=== PATIENT | female | born 1960 | race Asian ===

== ENCOUNTER 2018-06-26 10:27 | Inpatient (IN) | payer OTHER ==
[~2018-06-26] VITALS: Ht 149.9 cm; Wt 59.9 kg
[2018-06-26] MEDS ORDERED: SODIUM CHLORIDE 0.9% 1,000 ML IV ONE ×5 (11:04→13:37)
[2018-06-26 11:12] LABS: Hematocrit 53.8 % (36.0-46.0); Hemoglobin 18.3 g/dL (12.2-16.2); Mean Corpuscular Hemoglobin 29.8 pg (28.0-32.0); Mean Corpuscular Hgb Conc. 33.9 g/dL (32.0-36.0); Mean Corpuscular Volume 87.8 fL (80.0-100.0); Platelet Count (auto) 400 10^3/uL (140-450); Red Blood Cells 6.13 10^6/uL (4.0-5.20)
[2018-06-26] MEDS ORDERED: ONDANSETRON HCL 4 MG/2 ML VIAL IV ONE (11:15)
[2018-06-26] MEDS ORDERED: MORPHINE SULFATE 4 MG/ML SYR/VIAL IV ONE (11:15)
[2018-06-26 11:18] LABS: White Blood Cell 31.2 10^3/uL (4.4-10.8)
[2018-06-26 11:19] LABS: Albumin 4.9 g/dL (3.4-5.0); Anion Gap 12 (5-15); Basophils % (manual) 0 (0.0-2.0); Blast Cells 0; Blood Urea Nitrogen 31 mg/dL (7-18); Calcium 10.5 mg/dL (8.5-10.1); Carbon Dioxide 23 mmol/L (21-32); Chloride 101 mmol/L (98-107); Eosinophils % (manual) 0 (0-7); Glucose 317 mg/dL (74-106); Metamyelocytes % 0; Myelocytes % 0; Potassium 3.7 mmol/L (3.5-5.1); Promyelocytes % 0; Reactive Lymphocytes 0; Sodium 136 mmol/L (136-145)
[2018-06-26 11:26] LABS: Alanine Aminotransferase 38 U/L (13-56); Alkaline Phosphatase 100 U/L (45-117); Aspartate Aminotransferase 24 U/L (15-37); BUN/Creatinine Ratio 20.3; Bilirubin, Total 0.6 mg/dL (0.2-1.0); GFR African American 45 mL/min; GFR Non-African American 37 mL/min; Total Protein 9.3 g/dL (6.4-8.2)
[2018-06-26] MEDS ORDERED: VANCOMYCIN 1GM/250ML 250 ML IV ONE (11:30)
[2018-06-26] MEDS ORDERED: InsuLIN REG 1unit/0.01ml Soln (100units/ml) IV ONE (11:30)
[2018-06-26 12:01] LABS: Band Neutrophils % (manual) 2; Lymphocytes % (manual) 6 (10.0-50.0); Monocytes % (manual) 6 (0-12)
[2018-06-26 12:35] LABS: Lactic Acid w/Reflex 3.1 mmol/L (0.4-2.0)
[2018-06-26] MEDS ORDERED: metroNIDAZOLE 500MG/100ML 100 ML IV ONE (13:45)
[2018-06-26] MEDS ORDERED: GASTROGRAFIN 120 ML SOL ONE (14:47)
[2018-06-26] MEDS ORDERED: DEXTROSE (50%) 50ML SYRG IV PRN (15:45)
[2018-06-26] MEDS ORDERED: NITROGLYCERIN 0.4 MG SL TAB SL PRN (15:45)
[2018-06-26] MEDS ORDERED: LABETALOL HCL 5 MG/ML ML 20ML VIAL IV PRN (15:45)
[2018-06-26] MEDS ORDERED: MORPHINE SULF INJ 2 MG/ML SYRINGE 1ML IV PRN ×2 (15:45)
[2018-06-26] MEDS ORDERED: hydrALAZINE HCL 20 MG/ML VL IV PRN (15:45)
[2018-06-26] MEDS: InsuLIN REG 1unit/0.01ml Soln (100units/ml) SC SCH ×2 (18:42→23:16)
[2018-06-26] MEDS: ACCU-CHEK COMFORT CURVE STRIP VI SCH ×2 (18:42→23:19)
[2018-06-26] MEDS: FAMOTIDINE (10MG/ML) 2ML VL IV SCH (18:44)
[2018-06-26 19:32] LABS: Amylase 63 U/L (25-115); Lipase 186 U/L (73-393)
[2018-06-26] MEDS: SOD CHL 0.45% WITH 20MEQ KCL 1,000 ML IV SCH ×2 (19:57→23:21)
[2018-06-26 21:00] VITALS: BP 111/55
--- NOTE | 2018-06-26 21:30 | NUR ---
Telemetry admit from [facility] admitted to Telemetry unit. Patient oriented to LASHONDA TAVARES, MICHELINE WHITE,[place], unit, room, bed, and unit policies regarding patient care and visiting hours. Patient now on continuous telemetry monitoring, tele box #9. Patient on room air, weighed by bedscale and encouraged to call if they need something.Bedside commode and allergy band in place. Ng in right nare connected to suction setting LIS. All questions and concerns addressed, patient verbalized understanding. Iv pump continuing with fluid. Bed at lowest position and call light within reach. Signed: 06/27/18 at 034 by SN DENA <Co-Signature Required> Co-Signed: 06/27/18 at 034 by LASHONDA FLORES RN
[2018-06-26 21:33] LABS: INR 0.89 (0.9-1.15); Partial Thromboplastin Time 31.4 sec (23.78-33.04); Prothrombin Time 9.6 sec (9.27-12.13)
[2018-06-26 22:00] VITALS: BP 111/55
[2018-06-26] MEDS: metroNIDAZOLE 500MG/100ML 100 ML IV SCH (23:11)
--- NOTE | 2018-06-27 04:20 | NUR ---
NG tube out Entered patients room, NG tube on bed Patient Stated, "I accidently just pulled on it and it came out." Will place new GN tube.
--- NOTE | 2018-06-27 04:35 | NUR ---
Nasogastric tube reinsertion Patient educated on need for need to reinsert new NG tube. All questions addressed. Inserted 14 yoruba to right nare, at 49 cm. Placement verified by aspiration of stomach contents and auscultation. Connected to LIS Patient tolerated well. Addendum: 06/27/18 at 0710 by LASHONDA FLORES RN LIS held until CXR confirmed placement. 07 patient now on LIS
[2018-06-27 05:00] VITALS: BP 140/64
[2018-06-27] MEDS: metroNIDAZOLE 500MG/100ML 100 ML IV SCH ×2 (05:08→15:00)
[2018-06-27] MEDS: InsuLIN REG 1unit/0.01ml Soln (100units/ml) SC SCH ×2 (05:12→12:02)
[2018-06-27] MEDS: ACCU-CHEK COMFORT CURVE STRIP VI SCH ×2 (05:16→12:01)
[2018-06-27] MEDS ORDERED: ATOR20TA PO (05:44)
[2018-06-27] MEDS ORDERED: IBUP200C3 PO (05:44)
[2018-06-27] MEDS ORDERED: TRAZ50TA2 PO (05:44)
[2018-06-27] MEDS ORDERED: ALLO-52 PO (05:44)
[2018-06-27] MEDS ORDERED: CELE1CAP8 PO (05:44)
[2018-06-27] MEDS ORDERED: CYAN1TAB14 PO (05:44)
[2018-06-27] MEDS ORDERED: NIF30XLT PO (05:44)
[2018-06-27 07:35] LABS: Basophils # (auto) 0 uL; Basophils % (auto) 0.2 % (0.0-2.0); Eosinophils # (auto) 0.1 uL; Eosinophils % (auto) 0.6 % (0.0-7.0); Hematocrit 41.3 % (36.0-46.0); Hemoglobin 13.5 g/dL (12.2-16.2); Lymphocytes # (auto) 2.4 uL; Lymphocytes % (auto) 14.5 % (10.0-50.0); Mean Corpuscular Hemoglobin 29.3 pg (28.0-32.0); Mean Corpuscular Hgb Conc. 32.7 g/dL (32.0-36.0); Mean Corpuscular Volume 89.4 fL (80.0-100.0); Monocytes # (auto) 1.3 uL; Monocytes % (auto) 7.5 % (0.0-12.0); Neutrophils % (auto) 77.2 % (37.0-80.0); Platelet Count (auto) 270 10^3/uL (140-450); Red Blood Cells 4.62 10^6/uL (4.0-5.20); Red Cell Distribution Width 14.1 % (11.8-14.3); White Blood Cell 16.8 10^3/uL (4.4-10.8)
[2018-06-27 07:45] LABS: Urine Bacteria FEW /hpf (None Seen); Urine Blood Negative /uL (Negative); Urine Specific Gravity 1.022 (1.001-1.035); Urine WBC 1 /hpf (0 - 5)
[2018-06-27 07:46] LABS: Albumin 3.2 g/dL (3.4-5.0); Calcium 7.7 mg/dL (8.5-10.1)
[2018-06-27 07:50] LABS: BUN/Creatinine Ratio 31.8; Bilirubin, Total 0.5 mg/dL (0.2-1.0); Total Protein 6.2 g/dL (6.4-8.2)
--- NOTE | 2018-06-27 07:50 | NUR ---
TO [facility] FOR [facility] SCAN NG AND IV CLAMPED
--- NOTE | 2018-06-27 08:45 | NUR ---
RETURNED TO ROOM 251B. NG TO LIS, DRAINING BROWN MATERIAL
[2018-06-27 09:00] VITALS: BP 119/59
[2018-06-27] MEDS: FAMOTIDINE (10MG/ML) 2ML VL IV SCH (10:00)
[2018-06-27] MEDS ORDERED: LEVOFLOXACIN 750MG 150 ML IV ONE (10:00)
--- NOTE | 2018-06-27 10:55 | NUR ---
DR. TURNER IN. SHE SPOKE TO PT ABOUT TRANSFER TO [facility]
--- NOTE | 2018-06-27 11:06 | NUR ---
I faxed transfer order to [facility].
--- NOTE | 2018-06-27 11:11 | NUR ---
I called [facility] [phone] and spoke with sql programmer analyst Nya-she said they did receive today's clinical information that I faxed earlier-I let her know that the member is stable for transfer back to [facility]-she will have the assigned case sealer Antolin give me a call.
[2018-06-27] MEDS ORDERED: SOD CHL 0.45% WITH 20MEQ KCL 1,000 ML IV SCH (11:15)
--- NOTE | 2018-06-27 11:15 | NUR ---
NG TUBE DC'D ORDERED. GIVEN SUNDEEP HAVING SEVERAL LOOSE STOOLS, MUCH GAS; GETS HERSELF UP TO COMMODE.
--- NOTE | 2018-06-27 11:44 | NUR ---
I spoke with [facility] Nurse Psychotherapist Antolin [phone], he asked if patient would be able to be discharged home if she tolerates the liquid diet-I spoke with Dr. Mitchell, she said she will not discharge patient today-patient needs to be transferred to [facility]. I called [facility] Nurse Psychotherapist Antolin back to make him aware, provided him with contact information to Dr. Mitchell as well as the nurse's station.
[2018-06-27 13:00] VITALS: BP 107/58
--- NOTE | 2018-06-27 14:44 | NUR ---
CALL REC'D FROM CAT AT [facility] REGARDING TRANSFER RECEIVING MD WILL BE DR. Jaime ZHAO. ROOM ASSIGNMENT 332 TELEMETRY. COIN PURSE FRAMER TIME WILL BE 1999. NUMBER TO CALL REPORT IS [phone]
--- NOTE | 2018-06-27 16:48 | NUR ---
PT INFORMED OF TRANSFER, APPROX TIME OF 1999
[2018-06-27 17:00] VITALS: BP 118/65
--- NOTE | 2018-06-27 19:30 | NUR ---
Opening Shift Note Assumed care of patient, awake and alert x4. Awaiting transfer to [facility]. No S/S of distress/SOB or pain. Instructed on POC and to call for assist PRN, will continue to monitor for changes Q1hr and PRN.
--- NOTE | 2018-06-27 20:34 | NUR ---
Antolin called with [facility] new ETA is 2200, will update patient and continue care.
--- NOTE | 2018-06-27 21:18 | NUR ---
Pt being trans to [facility] Order obtained for transfer of [facility] to [facility]. Report called/given to JUAN. Report given to EMS transport team. Medication reconciliation form completed and copy given to patient. Transported via [facility] along with copied chart and imaging films/disk and all personal belongings. No distress noted on time of departure. Family notified of destination and room number, verbalized understanding.
[2018-06-28] MEDS ORDERED: NIFEdipine ER 30 MG TAB PO SCH (10:00)
[2018-06-28] MEDS ORDERED: LEVOFLOXACIN 750MG 150 ML IV SCH (10:00)
== END 2018-06-27 21:17 | disposition short-term general hospital (02) | DRG 871 ==
LOC: ER 10:27 → TELE 15:37 → TELE-EAST 20:28
PROVIDERS: ADMIT Nurse Practitioner Acute Care; ATTEND Internal Medicine
DX: A41.9 Sepsis, unspecified organism (principal); N17.0 Acute kidney failure with tubular necrosis; K56.51 Intestinal adhesions [bands], with partial obstruction; I10 Essential (primary) hypertension; E86.0 Dehydration; E11.9 Type 2 diabetes mellitus without complications; K57.30 Diverticulosis of large intestine without perforation or abscess without bleeding; Z85.3 Personal history of malignant neoplasm of breast; Z90.12 Acquired absence of left breast and nipple; Z90.710 Acquired absence of both cervix and uterus; K80.20 Calculus of gallbladder without cholecystitis without obstruction; Z88.0 Allergy status to penicillin; Z91.041 Radiographic dye allergy status
CPT/HCPCS: 36415; 71045; 74176; 74250; 78226; 80053; 80061; 81001; 82150; 82962; 83036; 83605; 83690; 84443; 84484; 85007; 85025; 85027; 85610; 85730; 86850; 86900; 86901; 87040; 93005; 96365; 96366; 96367; 96375; G0378; J1956; J2405; J3490